=== PATIENT | male | born 1960 | race Caucasian/White ===

== ENCOUNTER 2018-10-09 10:07 | Emergency (ER) | payer MEDICARE, SELFPAY ==
[2018-10-09] VITALS (7 sets, daily range): BP systolic 89–126; BP diastolic 47–83; PULSE 66–95; RESP 12–111; TEMP 36.6; O2SAT 92–100; BMI 28.8
--- NOTE | 2018-10-09 10:21 | CT_ITS ---
STUDY: CT ABDOMEN AND PELVIS WITH CONTRAST REASON FOR EXAM: Male, 58 years old. Constipation, hemorrhoids and rectal abscess. RADIATION DOSAGE (If Supplied By Facility): CTDIvol = ( 17.4 ) mGy, DLP = ( 1327.16 ) mGycm TECHNIQUE: Transaxial images were obtained from the dome of the diaphragm to the symphysis pubis without oral contrast. 100 ml of Isovue 300 contrast was administered. Sagittal and coronal images were reconstructed. Individualized dose optimization techniques were used for this CT. COMPARISON: None. FINDINGS: The visualized lung bases are unremarkable. The visualized portions of the heart are within normal limits. There is decreased attenuation of the liver consistent with steatosis. Normal gallbladder and extrahepatic biliary system. Normal spleen. Normal pancreas. Normal bilateral adrenal glands. Normal right kidney. Normal left kidney. Normal visualized stomach. Normal small intestine. There are multiple colonic diverticula consistent with diverticulosis. Is a 4.9 cm x 4.4 cm inhomogeneous soft tissue density in the right side of the posterior perineum. This most likely represents a focal abscess. Increased markings in the surrounding fat. The appendix is visualized and appears normal. There is diffuse atherosclerotic calcification of the abdominal aorta and its major visceral branches, without a demonstrated aneurysm. Normal inferior vena cava. There is borderline retroperitoneal lymphadenopathy with enlarged nodes no greater than 10mm in the short axis diameter. Normal urinary bladder. Normal abdominal wall. There are diffuse degenerative changes of the visualized lumbar spine. Loss of height and deformity of the L5 vertebrae. This may be post traumatic in nature. CT/Abdomen/Pelvis W IV Cont ONLY IMPRESSION: Fine suggestively 4.9 cm x 4.4 cm abscess in the posterior right perineum. Clinical correlation is recommended. Sigmoid diverticulosis. Electronically Signed: Abelino Roy MD at 13:25 EST Tel [phone], Service support ,
--- NOTE | 2018-10-09 10:25 | ED.DCSUM_ITS ---
- ER Visit Summary Date of Service: 10/09/18 Chief Complaint: Rectal pain History of Present Illness: The patient is a 58 M with increasing rectal pain over the past week or so. He has tried hemorrhoid medication and laxatives with no improvement. He has pain with bowel movements. The pain is spreading to his right buttock. Worse with touch and sitting. He said he had some fevers as recent as today. He never had this before. He has a remote history of B-cell lymphoma and is currently in remission. Physical Examination: Afebrile and vital signs unremarkable. Patient appears uncomfortable but not toxic or in distress. Heart regular. Lungs clear. Abdomen soft and nontender. Right buttock shows gluteal induration, edema, erythema, tenderness that extends adjacent to his anus on the right. Test Results: Laboratory studies and imaging pending. Emergency Department Course and Treatment: Patient treated with fluids, Zofran, and Dilaudid while awaiting results. White count 12.2, sodium 133, potassium 3.4, INR 1.1. Cultures pending. CT showed a right perineal abscess approximately 5 cm in greatest diameter. Patient was discussed with Dr. Cabezas. Patient will be consented for sedation and we will perform the I&D in the emergency department. Dr. Cabezas performed the I&D. I did sedation. He received a total of 300 mg of propofol. The procedure lasted a total of 39 minutes. He tolerated this well. He will be treated with Zosyn. He will be sent home on a course of Augmentin, Percocet, Colace. He will follow-up with surgery early next week. Treatment Plan: As above Disposition: Discharge Impression: 1. Right perineal abscess This note was generated with [employer] dictation software. It may contain incorrect words, spelling, and punctuation that were not noted in review of the chart prior to signing ED Disposition - Plan for ED Patient: Chief Complaint: Constipation Referrals: Nino Wolf MD [Primary Care Provider] -
[2018-10-09 10:43] LABS: Absolute Neutrophil Count 9.8 X10^3/uL (2.0-7.7); Basophil# 0.02 X10^3/uL; Basophil% 0.2 % (0-1); Eosinophil# 0.07 X10^3/uL; Eosinophils% 0.6 % (0-5); Hematocrit 41.8 % (40-54); Hemoglobin 14.9 g/dl (13.0-16.5); Lymphocyte % 9.8 % (19-41); Mean Corp Hgb Conc 35.6 g/gl (32-36); Mean Corpuscular Volume 95.4 fL (80-94); Mean Platelet Vol. 9.5 fl (6.2-12.0); Monocyte# 1.07 X10^3/uL; Monocyte% 8.8 % (0-10); Neutrophil # 9.79 X10^3/uL (2.7-7.7); Neutrophil % 80.3 % (47-70); Platelet Count 156 K/mm3 (150-450); RBC Distribution Width CV 11.9 % (11.6-14.6); Red Blood Count 4.38 M/mm3 (4.6-6.2); White Blood Count 12.2 K/mm3 (4.4-11.0)
[2018-10-09 10:44] LABS: POSITIVE COUNT NO; POSITIVE DIFFERENTIAL NO; POSITIVE MORPHOLOGY NO
[2018-10-09 10:51] LABS: International Normalized Ratio 1.1; Prothrombin Time (Protime)PT. 13.9 SECONDS (11.7-14.9)
[2018-10-09 10:54] LABS: Anion Gap 9 (5-15); BUN 11 mg/dL (7-18); BUN/Creat Ratio 14.7 RATIO (10-20); Calcium,Total 8.4 mg/dL (8.5-10.1); Chloride 100 mmol/L (98-107); Creatinine, Serum 0.75 mg/dL (0.70-1.30); EST Glomerular Filtration Rate 115 mL/min (>60); Est Glom Filt Rate - Afr Amer 139 mL/min (>60); Estimated Creatinine Clearance 105.13 ml/min; Glucose 89 mg/dL (74-106); Potassium 3.4 mmol/L (3.5-5.1); Sodium Level 133 mmol/L (136-145)
[2018-10-09] MEDS: HYDROmorphone 1 MG/ML Syringe IV ×2 (11:00→12:57)
[2018-10-09] MEDS: Ondansetron 4 MG/2 ML Vial IV (11:00)
[2018-10-09] MEDS: 0.9% Normal Saline 1,000 ML 1000 ML IV (11:00)
[2018-10-09] MEDS: Propofol 200 MG/20 ML Vial IV BOLUS (14:35)
--- NOTE | 2018-10-09 15:28 | ED.DEP ---
ED Disposition - Plan for ED Patient: Chief Complaint: Constipation Instructions: ED Abscess IandD Prescriptions: Oxycodone HCl/Acetaminophen [Percocet 5/325] 1 tab PO Q6H PRN PRN 3 Days #12 tab PRN Reason: Pain Amox/Clavulanate Tablet [Augmentin Tablet] 875 mg PO Q12H #20 tab Docusate Sodium [Colace] 100 mg PO DAILY #20 cap Referrals: Tami Cabezas MD [STAFF PHYSICIAN] -
--- NOTE | 2018-10-09 15:30 | PCM.CONS.GEN ---
Reason for Consult Date of Consultation: 10/09/18 Reason for Consultation: Right perianal abscess History of Present Illness: The patient is a 58 year old M resents to the ER due to pain on the right side of his anus. Patient states pain started the previous Saturday and the pain is been so bad that he has not had much of an appetite. He was able to control the pain a little bit with some old Vicodin that he found as well as the last 2 days some alcohol. Patient had a CT abdomen pelvis done which did show a right perianal abscess, white blood cell count of 12. Patient was given 2 L IV fluids. Patient does have a history of B-cell lymphoma and currently is in remission. States he has had issues in the past with hemorrhoids and has seen Dr. Ferrara for this what sounds the hemorrhoids may resolve on their own. Patient denies any history of any previous perirectal abscesses. And states that Dr. Ferrara has done a couple colonoscopies on him in the past and he is currently every 3 years due to polyps. Past Medical History Medical History: Medical History (Last Updated 10/09/18 @ 15:36 by Tami Cabezas MD) History of B-cell lymphoma Z85.72 Allergies No Known Allergies Allergy (Verified 10/09/18 10:09) Home Medications: Ambulatory Orders Medication Instructions Recorded NK 10/09/18 Surgical History: - - EGD and colonoscopy, port placement Smoking Status: Current every day smoker - *Family History Maternal History Items: No pertinent history - Physical Exam General: Alert, Cooperative, No apparent distress Lungs: Normal air movement Cardiovascular: Regular rate Abdomen: Soft, Non Tender, Non-Distended, - - Perianal exam, erythema about 7 x 8 cm on the right buttocks, fluctuance at the anus between 4 and 5:00, very tender to palpation. Extremities: No clubbing, No cyanosis, No edema Vital Signs Temp Pulse Resp BP Pulse Ox 98 F 74 16 99/54 L 98 10/09/18 10:08 10/09/18 15:22 10/09/18 15:22 10/09/18 15:22 10/09/18 15:22 Oxygen Flow Rate (L/min) [14] 15 Oxygen Flow Rate (L/min) [13] 15 Oxygen Flow Rate (L/min) [12] 15 Oxygen Flow Rate (L/min) [11] 15 Oxygen Flow Rate (L/min) [1] 2 Oxygen Flow Rate (L/min) [9] 15 Oxygen Flow Rate (L/min) [8] 15 Oxygen Flow Rate (L/min) [7] 15 Oxygen Flow Rate (L/min) [6] 15 Oxygen Flow Rate (L/min) [5] 15 Oxygen Flow Rate (L/min) [4] 15 Oxygen Flow Rate (L/min) [3] 15 Oxygen Flow Rate (L/min) [2] 4 Oxygen Delivery Method [14] Non-Rebreather Oxygen Delivery Method [13] Non-Rebreather Oxygen Delivery Method [12] Non-Rebreather Oxygen Delivery Method [11] Non-Rebreather Oxygen Delivery Method [1] Nasal Cannula Oxygen Delivery Method [10] Non-Rebreather Oxygen Delivery Method [9] Non-Rebreather Oxygen Delivery Method [8] Non-Rebreather Oxygen Delivery Method [7] Non-Rebreather Oxygen Delivery Method [6] Non-Rebreather Oxygen Delivery Method [5] Non-Rebreather Oxygen Delivery Method [4] Non-Rebreather Oxygen Delivery Method [3] Non-Rebreather Oxygen Delivery Method [2] Nasal Cannula Oxygen Delivery Method Room Air Weight: 190 lb Body Mass Index (BMI) 28.8 Laboratory Tests Past 24 Hrs 10/09/18 10/09/18 10/09/18 10:30 10:30 10:30 WBC 12.2 H RBC 4.38 L Hgb 14.9 Hct 41.8 MCV 95.4 H MCH 34.0 H MCHC 35.6 RDW 11.9 RDW Differential 41.0 Plt Count 156 MPV 9.5 Immature Gran % (Auto) 0.300 Neut % (Auto) 80.3 H Lymph % (Auto) 9.8 L [place] % (Auto) 8.8 Eos % (Auto) 0.6 Baso % (Auto) 0.2 Absolute Neuts (auto) 9.8 H Absolute Lymphs (auto) 1.20 Total Counted Not Reportable PT 13.9 INR 1.1 Sodium 133 L Potassium 3.4 L Chloride 100 Carbon Dioxide 24.0 Anion Gap 9 BUN 11 Creatinine 0.75 Estim Creat Clear Calc 105.13 Est GFR (MDRD) Af Amer 139 Est GFR (MDRD) Non-Af 115 BUN/Creatinine Ratio 14.7 Glucose 89 Calcium 8.4 L Assessment/Plan 58-year-old male with a right perianal abscess 1. Discussed with the patient and his friend the procedure of an I&D of the right perianal abscess including but not limited to bleeding, infection, possible need for future surgery due to fistula, and anesthesia. Patient did receive propofol per Dr. Gil in the ER. At about 4:00 there was noted to be obvious fluctuance about a centimeter and half from the anus extending to the anus. This area was prepped and draped in usual sterile fashion with Betadine. Lidocaine with epinephrine was used for local anesthesia over the site. Cruciate incision was made. About 10-15 cc of purulent material was expressed and also milk from the anus. The wound was irrigated. A hemostat was used to break up loculations. Half of the tubing of a 14 Urdu Malecot catheter was sutured in place with 3-0 silk to help prevent the hole from closing allow drainage. This was dressed with gauze and an ABD and paper tape. Patient tolerated procedure well. Patient will receive Zosyn IV in the ER as well as go home with Augmentin 875 mg p.o. twice daily times 10 days, pain meds per the ER as well as Colace. Instructed patient to follow-up with either me or Dr. Ferrara early next week. Also instructed patient to do sitz baths multiple times a day. Patient had no further questions at this time. Tami Cabezas M.D. Pager: [phone] [facility] [address] [place] [address], [facility], [address] [place] [id number] Office: [phone]
--- NOTE | 2018-10-09 15:34 | CON.PCM_ITS ---
Reason for Consult Date of Consultation: 10/09/18 Reason for Consultation: Right perianal abscess History of Present Illness: The patient is a 58 year old M resents to the ER due to pain on the right side of his anus. Patient states pain started the previous Saturday and the pain is b een so bad that he has not had much of an appetite. He was able to control the pain a little bit with some old Vicodin that he found as well as the last 2 days some alcohol. Patient had a CT abdomen pelvis done which did show a right perianal abscess, white blood cell count of 12. Patient was given 2 L IV fluids. Patient does have a history of B-cell lymphoma and currently is in remission. States he has had issues in the past with hemorrhoids and has seen Dr. Ferrara for this what sounds the hemorrhoids may resolve on their own. Patient denies any history of any previous perirectal abscesses. And states that Dr. Ferrara has done a couple colonoscopies on him in the past and he is currently every 3 years due to polyps. Past Medical History Medical History: Medical History (Last Updated 10/09/18 @ 15:36 by Tami Cabezas MD) History of B-cell lymphoma Z85.72 Allergies No Known Allergies Allergy (Verified 10/09/18 10:09) Home Medications: Ambulatory Orders Medication Instructions Recorded NK 10/09/18 Surgical History: - - EGD and colonoscopy, port placement Smoking Status: Current every day smoker - *Family History Maternal History Items: No pertinent history - Physical Exam General: Alert, Cooperative, No apparent distress Lungs: Normal air movement Cardiovascular: Regular rate Abdomen: Soft, Non Tender, Non-Distended, - - Perianal exam, erythema about 7 x 8 cm on the right buttocks, fluctuance at the anus between 4 and 5:00, very tender to palpation. Extremities: No clubbing, No cyanosis, No edema Vital Signs Temp Pulse Resp BP Pulse Ox 98 F 74 16 99/54 L 98 10/09/18 10:08 10/09/18 15:22 10/09/18 15:22 10/09/18 15:22 10/09/18 15:22 Oxygen Flow Rate (L/min) [14] 15 Oxygen Flow Rate (L/min) [13] 15 Oxygen Flow Rate (L/min) [12] 15 Oxygen Flow Rate (L/min) [11] 15 Oxygen Flow Rate (L/min) [1] 2 Oxygen Flow Rate (L/min) [9] 15 Oxygen Flow Rate (L/min) [8] 15 Oxygen Flow Rate (L/min) [7] 15 Oxygen Flow Rate (L/min) [6] 15 Oxygen Flow Rate (L/min) [5] 15 Oxygen Flow Rate (L/min) [4] 15 Oxygen Flow Rate (L/min) [3] 15 Oxygen Flow Rate (L/min) [2] 4 Oxygen Delivery Method [14] Non-Rebreather Oxygen Delivery Method [13] Non-Rebreather Oxygen Delivery Method [12] Non-Rebreather Oxygen Delivery Method [11] Non-Rebreather Oxygen Delivery Method [1] Nasal Cannula Oxygen Delivery Method [10] Non-Rebreather Oxygen Delivery Method [9] Non-Rebreather Oxygen Delivery Method [8] Non-Rebreather Oxygen Delivery Method [7] Non-Rebreather Oxygen Delivery Method [6] Non-Rebreather Oxygen Delivery Method [5] Non-Rebreather Oxygen Delivery Method [4] Non-Rebreather Oxygen Delivery Method [3] Non-Rebreather Oxygen Delivery Method [2] Nasal Cannula Oxygen Delivery Method Room Air Weight: 190 lb Body Mass Index (BMI) 28.8 Laboratory Tests Past 24 Hrs 10/09/18 10/09/18 10/09/18 10:30 10:30 10:30 WBC 12.2 H RBC 4.38 L Hgb 14.9 Hct 41.8 MCV 95.4 H MCH 34.0 H MCHC 35.6 RDW 11.9 RDW Differential 41.0 Plt Count 156 MPV 9.5 Immature Gran % (Auto) 0.300 Neut % (Auto) 80.3 H Lymph % (Auto) 9.[address] % (Auto) 8.8 Eos % (Auto) 0.6 Baso % (Auto) 0.2 Absolute Neuts (auto) 9.8 H Absolute Lymphs (auto) 1.20 Total Counted Not Reportable PT 13.9 INR 1.1 Sodium 133 L Potassium 3.4 L Chloride 100 Carbon Dioxide 24.0 Anion Gap 9 BUN 11 Creatinine 0.75 Estim Creat Clear Calc 105.13 Est GFR (MDRD) Af Amer 139 Est GFR (MDRD) Non-Af 115 BUN/Creatinine Ratio 14.7 Glucose 89 Calcium 8.4 L Assessment/Plan 58-year-old male with a right perianal abscess 1. Discussed with the patient and his friend the procedure of an I&D of the right perianal abscess including but not limited to bleeding, infection, possible need for future surgery due to fistula, and anesthesia. Patient did receive propofol per Dr. Gil in the ER. At about 4:00 there was noted to be obvious fluctuance about a centimeter and half from the anus extending to the anus. This area was prepped and draped in usual sterile fashion with Betadine. Lidocaine with epinephrine was used for local anesthesia over the site. C ruciate incision was made. About 10-15 cc of purulent material was expressed and also milk from the anus. The wound was irrigated. A hemostat was used to break up loculations. Half of the tubing of a 14 [place] Malecot catheter was sutured in place with 3-0 silk to help prevent the hole from closing allow drainage. This was dressed with gauze and an ABD and paper tape. Patient tolerated procedure well. Patient will receive Zosyn IV in the ER as well as go home with Augmentin 875 mg p.o. twice daily times 10 days, pain meds per the ER as well as Colace. Instructed patient to follow-up with either me or Dr. Ferrara early next week. Also instructed patient to do sitz baths multiple times a day. Patient had no further questions at this time. Tami Cabezas M.D. Pager: [phone] [facility] [address] [place] [address], [address] [place] [address] Office: [phone]
[2018-10-09] MEDS: Piperacil/Tazobactam 3.375 GM/50 ML ML IV (15:55)
== END 2018-10-09 16:51 | disposition home or self-care (01) ==
PROVIDERS: Emergency Provider Emergency Medicine; Family Provider Family Medicine; PCP Family Medicine
DX: L02.215 Cutaneous abscess of perineum (principal); B96.89 Other specified bacterial agents as the cause of diseases classified elsewhere; C85.10 Unspecified B-cell lymphoma, unspecified site; F17.200 Nicotine dependence, unspecified, uncomplicated
CPT/HCPCS: 46050; 36415; 74177; 80048; 85025; 85610; 87040; 87070; 87075; 87076; 87077; 87186; 87205; 96361; 96365; 96375; 96376; 99156; 99157; 99284; J7030; Q9967; A4216; J2405

== ENCOUNTER 2021-03-27 13:51 | Emergency (ER) | payer MEDICARE, SELFPAY ==
[2021-03-27 13:51] VITALS: BP 111/69; PULSE 99; RESP 20; TEMP 36.1; O2SAT 93; BMI 30.2
[2021-03-27 14:16] VITALS: BP 111/80; PULSE 87; RESP 24; TEMP 36.1; O2SAT 92
--- NOTE | 2021-03-27 14:45 | EKG12_ITS ---
Test Reason : SOB Blood Pressure : / mmHG Vent. Rate : 082 BPM Atrial Rate : 082 BPM P-R Int : 128 ms QRS Dur : 082 ms QT Int : 384 ms P-R-T Axes : 038 -14 028 degrees QTc Int : 448 ms Normal sinus rhythm Low voltage QRS (Limb Leads) Confirmed by MICHELLE LYNN, LYLE ([id number]), development editor DORIS BOWERS ([id number]) on 03/30/2021 8:57:02 AM Referred By: CORY Confirmed By:LYLE MARTINEZ MD
[2021-03-27 15:03] LABS: Absolute Lymphocyte Count 1.45 X10^3/uL (0.83-4.51); Absolute Neutrophil Count 3.9 X10^3/uL (2.0-7.7); Basophil# 0.02 X10^3/uL; Basophil% 0.3 % (0-1); Eosinophil# 0.05 X10^3/uL; Eosinophils% 0.8 % (0-5); Hematocrit 35.8 % (40-54); Hemoglobin 12.2 g/dL (13.0-16.5); Lymphocyte # 1.45 X10^3/ul (0.83-4.51); Lymphocyte % 24.5 % (19-41); Mean Corp Hgb Conc 34.1 g/dL (32-36); Mean Corpuscular Hgb 31.8 pg (27.0-32.0); Mean Corpuscular Volume 93.2 fL (80-94); Mean Platelet Vol. 10.3 fl (6.2-12.0); Monocyte# 0.43 X10^3/uL; Monocyte% 7.3 % (0-10); NRBC Flagged by Analyzer 0 % (0-5); Neutrophil # 3.92 X10^3/uL (2.7-7.7); Neutrophil % 66.4 % (47-70); POSITIVE MORPHOLOGY YES; Platelet Count 185 K/mm3 (150-450); RBC Distribution Width CV 12.6 % (11.6-14.6); RBC Distribution Width SD 43.3 fl (35.1-43.9); Red Blood Count 3.84 M/mm3 (4.6-6.2); White Blood Count 5.9 K/mm3 (4.4-11.0)
[2021-03-27 15:04] LABS: Differential Indicated SCAN CRITERIA MET
--- NOTE | 2021-03-27 15:12 | ED.VIS.GEN ---
History of Present Illness Chief Complaint: Shortness of Breath Informant: Patient Narrative: 10-year-old male with no reported medical history presenting with shortness of breath for about 2-1/2 weeks. He states he was exposed to his daughter who had tested positive for Covid about 3 weeks ago. 2 to 3 days later he started having symptoms including fever, chills, body aches, dyspnea, change in taste and smell. He did not call his primary care doctor. He states that his daughter recovered and gave him her zinc and Mucinex and asked what has been taking. Has been able to eat and drink without nausea or vomiting. He is making normal urine and states he is slightly constipated at times. He no longer has a fever. He has dyspnea with exertion. He states he is a smoker but quit 2 weeks ago. He is denying any chest pain. Past Medical History - Allergies and Home Meds Allergies/Adverse Reactions: Allergies No Known Allergies Allergy (Verified 03/27/21 13:56) Primary Care Physician: Nino Wolf MD [Primary Care Provider] - Prior records reviewed: Yes Past Medical History: - - Denies significant medical history Surgical History: - Lives: Alone Smoking Status: Current every day smoker Alcohol: None Drugs: None - Family History Maternal Family History: Reports: No pertinent history Review of Systems General: Denies: Chills, Fever, Sweats Eyes: Denies: Visual changes - bilaterally, Diplopia ENT: Reports: - - Decreased taste and smell. Denies: Rhinorrhea, Sore throat Cardiovascular: Denies: Chest pain, Palpitations Respiratory: Reports: Dyspnea, Cough, Dyspnea on exertion Gastrointestinal: Reports: Constipation. Denies: Abdominal pain, Nausea, Vomiting Genitourinary: Denies: Dysuria, Hematuria, Frequency Musculoskeletal: Reports: Myalgias - Resolved Skin: Denies: Rash, Abscess Neurological: Denies: Headache, Weakness, Parasthesia Psych: Denies: Depression, Anxiety Endocrine: Denies: Polyuria, Polydipsia Physical Exam Vital Signs/Narrative: Vital Signs Temp Pulse Resp BP Pulse Ox 03/27/21 14:16 97 F L 87 24 H 111/80 92 03/27/21 13:51 97 F L 99 20 H 111/69 93 Inital Vital Signs reviewed: Yes General: Well nourished Head: Normocephalic, Atraumatic Eyes: Perrl, EOMI. Negative for: Pale conjunctiva ENT: Moist mucous membranes, No rhinorrhea Cardiovascular: Regular rate, Regular rhythm Respiratory: No distress, CTA bilaterally Abdomen: Soft, Nontender, Nondistended Back: Nontender, Normal Inspection Extremities: Nontender, No edema Skin: Normal color, No rash. Negative for: Cyanosis, Diaphoresis Neurological: Alert, Oriented x3, Cranial nerves II-XII grossly intact Psychological: Normal affect, Normal Mood Diagnostic/Tx/Re-eval Clinical Impression(s) from Imaging Studies Chest X-Ray 03/27/21 15:23 IMPRESSION: Diffuse bilateral patchy infiltrates in the differential lateral distribution suggestive of pneumonitis secondary to Covid 19. Electronically Signed: Abelino Roy MD at 15:44 EDT , Service support , Chest CTA 03/27/21 16:22 IMPRESSION: 1. No evidence of pulmonary embolus. 2. No aortic dissection or aneurysm. 3. Mediastinal and hilar lymphadenopathy increased from the prior PET/CT scan. This is thought to be secondary to the patient''s lymphoma. 4. Diffuse fibrotic appearing groundglass infiltrates peripherally through both lungs with minimal consolidation at the lung bases4. This could represent atypical viral pneumonia. 5. Splenomegaly unchanged from prior study. Electronically Signed: Prasanna Roland DO at 17:35 EDT Tel [phone], Service support , Laboratory Data 03/27/21 03/27/21 03/27/21 14:40 14:40 14:40 WBC 5.9 RBC 3.84 L Hgb 12.2 L Hct 35.8 L MCV 93.2 MCH 31.8 MCHC 34.1 RDW Std Deviation 43.3 RDW Coeff of Hilda 12.6 Plt Count 185 MPV 10.3 Immature Gran % (Auto) 0.700 Neut % (Auto) 66.4 Lymph % (Auto) 24.5 Cameron % (Auto) 7.3 Eos % (Auto) 0.8 Baso % (Auto) 0.3 Absolute Neuts (auto) 3.9 Absolute Lymphs (auto) 1.45 Nucleated RBC % 0 Reactive Lymphocytes RARE Sodium 134 L Potassium 3.7 Chloride 100 Carbon Dioxide 27.0 Anion Gap 7 BUN 12 Creatinine 0.86 Estim Creat Clear Calc 89.48 Est GFR (MDRD) Af Amer 117 Est GFR (MDRD) Non-Af 97 BUN/Creatinine Ratio 14.0 Glucose 106 Lactic Acid 1.5 Calcium 8.4 L Total Bilirubin 1.20 H AST 78 H ALT 45 Alkaline Phosphatase 92 Troponin I < 0.015 Total Protein 6.7 Albumin 2.5 L Globulin 4.2 Albumin/Globulin Ratio 0.6 L Procalcitonin 03/27/21 14:40 WBC RBC Hgb Hct MCV MCH MCHC RDW Std Deviation RDW Coeff of Hilda Plt Count MPV Immature Gran % (Auto) Neut % (Auto) Lymph % (Auto) Cameron % (Auto) Eos % (Auto) Baso % (Auto) Absolute Neuts (auto) Absolute Lymphs (auto) Nucleated RBC % Reactive Lymphocytes Sodium Potassium Chloride Carbon Dioxide Anion Gap BUN Creatinine Estim Creat Clear Calc Est GFR (MDRD) Af Amer Est GFR (MDRD) Non-Af BUN/Creatinine Ratio Glucose Lactic Acid Calcium Total Bilirubin AST ALT Alkaline Phosphatase Troponin I Total Protein Albumin Globulin Albumin/Globulin Ratio Procalcitonin 0.45 H - Medical Decision Making 60-year-old male presenting with shortness of breath which is worse with exertion. He is exposed to COVID-19 and had multiple symptoms consistent with Covid. He states this is been worse over 2-1/2 weeks and he now feels more dyspneic. He states is not having any chest pain. Patient had EKG performed on arrival which shows a sinus rhythm at 82 bpm. Chest x-ray shows bilateral pulmonary infiltrates as interpreted by myself and radiology does agree. CTA of the chest shows similar findings without PE or dissection as interpreted by radiology and reviewed by myself. Lab work shows that he is not leukopenic or lymphopenic. He does not have a leukocytosis. Renal function and electrolytes are unremarkable. Is a small bump in his LFTs which would be consistent with a COVID-19. Patient ambulated on pulse ox and maintain sats 93 to 94%. I feel at this point he is stable for discharge home. I talked with Dr. Wolf regarding the patient that he was lost to follow-up during the pandemic. He states that he will follow up with him closely and make sure that he is improving. He recommended starting doxycycline given the patient's elevated procalcitonin. He was given the first dose in the ED and was given a prescription. Patient given return precautions. He stable for discharge at this time. Impression: 1. COVID-19 2. Dyspnea 3. Elevated LFTs ED Disposition - Plan for ED Patient: Referrals: Nino Wolf MD [Primary Care Provider] -
[2021-03-27 15:19] LABS: ALB/GLOB Ratio 0.6 RATIO (0.9-2.4); AST(SGOT) 78 U/L (15-37); Alanine Aminotransfer ALT/SGPT 45 U/L (16-61); Albumin, Serum 2.5 g/dL (3.2-5.0); Alkaline Phosphatase 92 U/L (45-117); Anion Gap 7 (5-15); BUN 12 mg/dL (7-18); Calcium,Total 8.4 mg/dL (8.5-10.1); Chloride 100 mmol/L (98-107); Creatinine, Serum 0.86 mg/dL (0.70-1.30); EST Glomerular Filtration Rate 97 mL/min (>60); Est Glom Filt Rate - Afr Amer 117 mL/min (>60); Estimated Creatinine Clearance 89.48 ml/min; Globulin 4.2 g/dL (2.2-4.2); Glucose 106 mg/dL (74-106); Potassium 3.7 mmol/L (3.5-5.1); Protein, Total 6.7 g/dL (6.4-8.2); Sodium Level 134 mmol/L (136-145)
[2021-03-27 15:20] LABS: Reactive Lymphocyte RARE
[2021-03-27 15:23] LABS: Lactic Acid 1.5 mmol/L (0.4-1.9)
--- NOTE | 2021-03-27 15:23 | RAD_ITS ---
STUDY: X-RAY CHEST REASON FOR EXAM: Male, 60 years old. Cough TECHNIQUE: Single AP portable view of the chest. COMPARISON: None. FINDINGS: EKG electrodes are seen. Diffuse bilateral infiltrates in the preferential peripheral distribution. Pneumonitis secondary to Covid 19 should be ruled out There is no demonstrated pleural abnormality. Normal size heart. Normal mediastinum and yevgeniy. Normal visualized pulmonary arteries. There is atherosclerotic calcification of the aortic arch with tortuosity. There are diffuse degenerative changes of the visualized thoracic spine. Normal visualized ribs, clavicles, and shoulders. There is no demonstrated abnormality of the visualized soft tissue structures of the upper abdomen. RAD/Chest 1 View (Portable) IMPRESSION: Diffuse bilateral patchy infiltrates in the differential lateral distribution suggestive of pneumonitis secondary to Covid 19. Electronically Signed: Abelino Roy MD at 15:44 EDT , Service support ,
[2021-03-27] MEDS: Ipratropium/Albuterol Sulfate 3 ML AMPUL.NEB INHALATION (15:26)
[2021-03-27] MEDS: Albuterol 2.5 MG/3 ML VIAL.NEB. INHALATION (15:26)
[2021-03-27 15:29] LABS: Procalcitonin 0.45 ng/mL (0.00-0.09)
[2021-03-27 15:30] VITALS: PULSE 85; RESP 24; RESP 25; O2SAT 93
[2021-03-27] MEDS: MethylPREDNISolone 125 MG/2 ML Vial IV (16:10)
[2021-03-27 16:12] VITALS: BP 106/70; PULSE 99; RESP 28; O2SAT 94
--- NOTE | 2021-03-27 16:22 | CT_ITS ---
STUDY: CTA CHEST REASON FOR EXAM: Male, 60 years old. Dyspnea for 2 weeks. History of lymphoma. RADIATION DOSAGE (If Supplied By Facility): CTDIvol = ( 11.47 ) mGy, DLP = ( 401.08 ) mGycm TECHNIQUE: The examination was performed with the intravenous administration of IV 100mL Isovue-370. Post-processing of the angiographic images was performed, with multiplanar reformation and 3D reconstruction. Individualized dose optimization techniques were used for this CT. COMPARISON: Chest, 03/27/2021. Pet/CT scan, 04/23/2011. FINDINGS: Normal enhancement of the main pulmonary artery and right and left pulmonary arteries. Normal enhancement of the bilateral peripheral pulmonary arteries. There is no demonstrated pulmonary embolism. Minimal atherosclerotic changes of the thoracic aorta without aneurysm. There is no demonstrated aortic dissection. Normal heart and pericardium. There are calcifications of the coronary arteries. There is evidence of mediastinal lymphadenopathy. The largest node, in the subcarinal space, measures 1.8 x 1.7 x 1.5 cm. Bilateral hilar lymphadenopathy. Normal visualized trachea and bronchi. The lungs are well expanded. There is patchy peripheral fibrotic appearing densities throughout both lungs. Questionable mild consolidation in the lower lobes. No focal mass. Normal pleura. Nonspecific subcentimeter axillary lymphadenopathy. The chest wall is otherwise unremarkable. There are degenerative changes of thoracic spine. 2 Splenomegaly without mass. There is a hiatal hernia. CT/CTA Chest W/WO Contrast IMPRESSION: 1. No evidence of pulmonary embolus. 2. No aortic dissection or aneurysm. 3. Mediastinal and hilar lymphadenopathy increased from the prior PET/CT scan. This is thought to be secondary to the patient''s lymphoma. 4. Diffuse fibrotic appearing groundglass infiltrates peripherally through both lungs with minimal consolidation at the lung bases4. This could represent atypical viral pneumonia. 5. Splenomegaly unchanged from prior study. Electronically Signed: Prasanna Roland DO at 17:35 EDT Tel [phone], Service support ,
[2021-03-27 17:17] VITALS: BP 108/65; PULSE 88; RESP 29; O2SAT 93; O2SAT 94
[2021-03-27 18:03] VITALS: PULSE 85; RESP 27; O2SAT 94
[2021-03-27] MEDS: Doxycycline 100 MG CAPSULE PO (18:18)
== END 2021-03-27 18:22 | disposition home or self-care (01) ==
PROVIDERS: Emergency Provider Student in an Organized Health Care Education/Training Program; PCP Family Medicine
DX: U07.1 COVID-19 (principal); R06.00 Dyspnea, unspecified; R79.89 Other specified abnormal findings of blood chemistry; F17.200 Nicotine dependence, unspecified, uncomplicated
CPT/HCPCS: 71045; 71275; 80053; 83605; 84145; 84484; 85025; 87635; 93005; 94640; 96374; 99251; 99285; Q9967; A4216; G0463; U0002

== ENCOUNTER 2021-04-15 09:27 | Emergency (ER) | payer MEDICARE, SELFPAY ==
[2021-04-15 09:28] VITALS: BP 146/89; PULSE 87; RESP 20; TEMP 36.7; O2SAT 97; BMI 28.5
--- NOTE | 2021-04-15 09:43 | EKG12_ITS ---
Test Reason : Blood Pressure : / mmHG Vent. Rate : 076 BPM Atrial Rate : 076 BPM P-R Int : 130 ms QRS Dur : 082 ms QT Int : 386 ms P-R-T Axes : 018 -11 032 degrees QTc Int : 434 ms Normal sinus rhythm Possible Inferior infarct , age undetermined Abnormal ECG Confirmed by RAMSEY LYNN, CLAIRE ([id number]), make up editor DORIS BOWERS ([id number]) on 04/18/2021 9:27:37 AM Referred By: GRIFFIN Confirmed By:CLAIRE MUSTAFA MD
--- NOTE | 2021-04-15 09:43 | CT_ITS ---
EXAM: CT ANGIOGRAPHY CHEST WITHOUT AND WITH INTRAVENOUS CONTRAST : 1960 CLINICAL INDICATION: pulmonary TECHNIQUE: Helically acquired angiography images were obtained of the chest without and with intravenous contrast. This CT exam was performed using one or more of the following dose reduction techniques: automated exposure control, adjustment of the mA and/or kV according to patient size, and/or use of iterative reconstruction technique. This report was created using [employer] report generation technology. MIP reconstructed images were created and reviewed. CONTRAST: IV 100mL Isovue-370 COMPARISON: None. FINDINGS: PULMONARY ARTERIES: Unremarkable. Normal in caliber. No evidence of pulmonary embolism. AORTA: Unremarkable. Normal in caliber. No evidence of dissection. GREAT VESSELS OF AORTIC ARCH: Unremarkable. Normal in caliber. No evidence of dissection. LUNGS AND PLEURAL SPACES: There are patchy peripheral areas of groundglass opacity and consolidation greatest in the lower lobes. No mass. No pleural effusion or thickening. No pneumothorax. HEART: Unremarkable. Heart size is normal. No pericardial effusion. No signs of right heart strain. MEDIASTINUM: There are scattered mediastinal and hilar lymph nodes. Esophagus is unremarkable. No hiatal hernia. THYROID: Unremarkable. No thyroid lesions. BONES/JOINTS: Unremarkable. No suspicious lytic or blastic abnormality. CT/CTA Chest W/WO Contrast IMPRESSION: 1. No evidence of pulmonary embolus. 2. Scattered peripheral areas of groundglass opacity consolidation. Imaging features can be seen with coated 19 pneumonia, though are nonspecific and can occur of the right infectious and noninfectious processes. There are also lymph nodes in the mediastinum which are likely reactive or inflammatory. Individualized dose optimization techniques were used for this CT. at 1119 Reported and signed by: Pee Biswas MD Electronically Signed: Pee Biswas MD at 11:18 EDT Tel , Service support ,
[2021-04-15 10:20] LABS: Absolute Lymphocyte Count 1.86 X10^3/uL (0.83-4.51); Absolute Neutrophil Count 3.6 X10^3/uL (2.0-7.7); Basophil# 0.05 X10^3/uL; Basophil% 0.8 % (0-1); Eosinophil# 0.12 X10^3/uL; Hematocrit 38.3 % (40-54); Hemoglobin 12.8 g/dL (13.0-16.5); Lymphocyte # 1.86 X10^3/ul (0.83-4.51); Lymphocyte % 30.3 % (19-41); Mean Corp Hgb Conc 33.4 g/dL (32-36); Mean Corpuscular Hgb 30.9 pg (27.0-32.0); Mean Corpuscular Volume 92.5 fL (80-94); Mean Platelet Vol. 9.1 fl (6.2-12.0); Monocyte# 0.49 X10^3/uL; NRBC Flagged by Analyzer 0 % (0-5); Neutrophil % 58.6 % (47-70); Platelet Count 114 K/mm3 (150-450); RBC Distribution Width CV 13.3 % (11.6-14.6); RBC Distribution Width SD 45.2 fl (35.1-43.9); Red Blood Count 4.14 M/mm3 (4.6-6.2); White Blood Count 6.1 K/mm3 (4.4-11.0)
[2021-04-15 10:36] LABS: ALB/GLOB Ratio 0.9 RATIO (0.9-2.4); AST(SGOT) 16 U/L (15-37); Alanine Aminotransfer ALT/SGPT 23 U/L (16-61); Albumin, Serum 3.2 g/dL (3.2-5.0); Alkaline Phosphatase 116 U/L (45-117); Anion Gap 5 (5-15); BUN 12 mg/dL (7-18); BUN/Creat Ratio 14.4 RATIO (10-20); Calcium,Total 8.7 mg/dL (8.5-10.1); Chloride 102 mmol/L (98-107); Creatinine, Serum 0.83 mg/dL (0.70-1.30); EST Glomerular Filtration Rate 100 mL/min (>60); Est Glom Filt Rate - Afr Amer 121 mL/min (>60); Estimated Creatinine Clearance 92.71 ml/min; Globulin 3.5 g/dL (2.2-4.2); Glucose 91 mg/dL (74-106); Protein, Total 6.7 g/dL (6.4-8.2); Sodium Level 134 mmol/L (136-145)
[2021-04-15 10:38] LABS: BNP,B-Type NATRIURETIC PEPTIDE 19.7 pg/mL (0-100)
--- NOTE | 2021-04-15 10:48 | ED.VIS.DYS ---
HPI History of Present Illness Chief Complaint: Shortness of Breath Informant: patient Onset/Context/Timing Onset: Weeks Context: gradual Timing: Intermittent Quality: Positive for Dyspnea on exertion Current Severity: Mild Maximum Severity: Moderate Worsened by: Exertion and Coughing Relieved by: Nothing Associated Symptoms cough Chest Pain: Positive for Pleuritic Narrative Narrative: The patient is a 60-year-old male with medical history significant for B-cell lymphoma that is in remission, recent positive Covid test about 3 weeks ago, who presents to the emergency department with persistent shortness of breath. The patient states that he is been feeling short of breath for about 6 weeks. He states that when he initially developed a Covid symptoms. He was seen here about 3 weeks ago. At a point, he was positive for Covid but his work-up was otherwise essentially unremarkable. He is not hypoxic. He states since the diagnosis, he seemed to improve for a few days, but then became more short of breath. He states is worse when he exerts himself. He denies any chest pain. He does admit to some pleuritic pain especially when taking a deep breath. [facility] Medical History History of B-cell lymphoma Home Medications doxycycline monohydrate 100 mg PO BID #20 capsule 03/27/21 [Rx Last Taken Unknown] prednisone 10 mg PO DAILY #48 tablet 04/15/21 [Rx Last Taken Unknown] Allergy/AdvReac Type Severity Reaction Status Date / Time No Known Allergies Allergy Verified 04/15/21 09:31 Surgical History s/p port placement Social History Smoking Status: Former smoker ROS ROS ED Constitutional Constitutional ED: Denies chills or fever(s) Eyes Eyes: Denies blurry vision or change in vision ENT ENT ED: Denies ear pain or sore throat Cardiovascular Cardiovascular: Denies chest pain or palpitations Respiratory/Chest Respiratory/Chest: Reports dyspnea and dyspnea on exertion; Denies cough Gastrointestinal Gastrointestinal: Denies abdominal pain, nausea or vomiting Genitourinary Genitourinary ED: Denies dysuria or urinary frequency Musculoskeletal Musculoskeletal: Denies arthralgias or myalgias Integumentary Denies rash Neurologic Neurologic: Denies headache(s) or paresthesias Psychiatric Psychiatric: Denies anxiety or depression Endocrine Endocrinology: Denies polydipsia or polyuria Allergic/Immunologic Allergic/Immunologic ED: Denies urticaria EXAM Physical Exam Const Vital Signs: 04/15/21 09:28 04/15/21 10:02 Temperature 98.0 F Temperature Source Temporal Pulse Rate 87 Respiratory Rate 20 H Respiratory Effort Normal Non-Labored Respiratory Depth Normal Respiratory Pattern Normal Blood Pressure 146/89 H Blood Pressure Mean 108 Pulse Ox 97 Oxygen Delivery Method Room Air Room Air Positive well nourished and well developed General Appearance ED: well developed HEENT Reports normocephalic, head/scalp atraumatic and moist mucous membranes Eyes PERRL and EOMs intact bilaterally Neck no lymphadenopathy and supple General: Negative for tenderness Chest Wall inspection of chest normal Resp normal respiratory effort and clear to auscultation bilaterally Cardio regular rate, regular rhythm and no murmurs GI normal to inspection, nondistended, normoactive bowel sounds Palpation: Negative for tender, guarding or rebound tenderness present Back/Spine no CVA tenderness Cervical Spine: Negative for cervical spine tenderness Thoracic Spine / Upper Back: Negative for thoracic spinal tenderness Extremity normal to inspection General Extremety ED: Negative for tenderness Neuro oriented x3 and CN's II-XII intact bilaterally Neuro Narrative: No focal deficits appreciated. Sensorium / Orientation: alert Psych mental status grossly normal Skin no rashes or lesions noted, no wounds and skin turgor normal MDM MDM MDM Narrative Medical decision making narrative: The patient presents with persistent shortness of breath in light of his recent Covid diagnosis. EKG was obtained on arrival. Sinus rhythm without evidence of acute ischemia. Cardiac enzymes are normal. BNP was negative. In light of his recent Covid, I did obtain a CTA of his chest. He still has the persistent lymphadenopathy. He has inflammatory changes in the periphery, but it does look stable to improved from his prior CTA. With the patient's smoking history and inflammatory change, I do feel that a prednisone burst would likely improve the symptoms. He has already completed a course of antibiotics. He has not had fever. I do not feel this represents a bacterial infection. At this point, the patient will be discharged with a prednisone burst and taper and will follow up with his primary care. Impression 1. Dyspnea 2. Inflammatory pulmonary infiltrates Lab Data Attestation: I reviewed the patient's lab results. Labs: Laboratory Results - last 24 hr 04/15/21 04/15/21 04/15/21 10:10 10:10 10:10 WBC 6.1 RBC 4.14 L Hgb 12.8 L Hct 38.3 L MCV 92.5 MCH 30.9 MCHC 33.4 RDW Std Deviation 45.2 H RDW Coeff of Hilda 13.3 Plt Count 114 L MPV 9.1 Immature Gran % (Auto) 0.300 Neut % (Auto) 58.6 Lymph % (Auto) 30.3 [place] % (Auto) 8.0 Eos % (Auto) 2.0 Baso % (Auto) 0.8 Absolute Neuts (auto) 3.6 Absolute Lymphs (auto) 1.86 Nucleated RBC % 0 Sodium 134 L Potassium 4.0 Chloride 102 Carbon Dioxide 27.0 Anion Gap 5 BUN 12 Creatinine 0.83 Estim Creat Clear Calc 92.71 Est GFR (MDRD) Af Amer 121 Est GFR (MDRD) Non-Af 100 BUN/Creatinine Ratio 14.4 Glucose 91 Calcium 8.7 Total Bilirubin 0.50 AST 16 ALT 23 Alkaline Phosphatase 116 Troponin I < 0.015 B-Natriuretic Peptide 19.7 Total Protein 6.7 Albumin 3.2 Globulin 3.5 Albumin/Globulin Ratio 0.9 Radiography Diagnostic Testing: Radiology Impression Chest CTA 04/15/21 09:43 IMPRESSION: 1. No evidence of pulmonary embolus. 2. Scattered peripheral areas of groundglass opacity consolidation. Imaging features can be seen with coated 19 pneumonia, though are nonspecific and can occur of the right infectious and noninfectious processes. There are also lymph nodes in the mediastinum which are likely reactive or inflammatory. Individualized dose optimization techniques were used for this CT. at 1119 Reported and signed by: Pee Biswas MD Electronically Signed: Pee Biswas MD at 11:18 EDT Tel , Service support , Discharge Plan Triage Chief Complaint: Shortness of Breath ED Provider: Luis Decker Dx/Rx/DC Orders Instructions: ED Dyspnea Prescriptions: New prednisone 10 MG tablet 10 mg PO DAILY Qty: 48 RF: 0 No Action doxycycline monohydrate 100 MG capsule 100 mg PO BID Qty: 20 RF: 0 Primary Care Provider: Nino Wolf Referrals: Nino Wolf MD [Primary Care Provider] -
[2021-04-15 11:41] VITALS: BP 113/80; PULSE 81; RESP 22; O2SAT 97
== END 2021-04-15 11:42 | disposition home or self-care (01) ==
LOC: ED 11:09
PROVIDERS: Emergency Provider Emergency Medicine; PCP Family Medicine
DX: R06.00 Dyspnea, unspecified (principal); R91.8 Other nonspecific abnormal finding of lung field; Z85.72 Personal history of non-Hodgkin lymphomas; Z87.891 Personal history of nicotine dependence
CPT/HCPCS: 71275; 80053; 83880; 84484; 85025; 93005; 96360; 96361; 99284; J7040; Q9967; A4216

== ENCOUNTER → 2021-10-24 16:15 | Outpatient (CLI) | payer MEDICARE, SELFPAY ==
--- NOTE | 2021-10-24 16:00 | PET_ITS ---
EXAMINATION: FDG PET-CT INDICATIONS: A 61-year-old male with history of lymphoma presenting for restaging examination. COMPARISON EXAMINATION: FDG PET-CT report dated 07/05/21, MRI of the lumbar spine report dated 09/28/21 TECHNIQUE: Following the intravenous administration of 14.9 mCi of F-18 deoxyglucose via the left antecubital fossa, multiplanar image acquisitions of the neck, chest, abdomen and pelvis to level of mid thigh, obtained at one hour post radiopharmaceutical administration contemporaneously interpreted with the current CT of the neck, chest, abdomen and pelvis, to level of mid thigh, dated 10/24/21 via coregistration and FDG PET-CT report dated 07/05/21, MRI of the lumbar spine report dated 09/28/21 reveals: BLOOD GLUCOSE LEVEL:?? 86 mg/dl?HEIGHT:?68 inches?WEIGHT: 200 lbs. FINDINGS: 1. There is no quantitative scintigraphic evidence of abnormal increased glucose metabolism on meticulous inspection of whole body acquisitions to include all three axis reconstructions. 2. Normal physiologic distribution of the radiopharmaceutical is apparent in the hepatic and splenic parenchyma, both renal units, bladder and visualized intestinal tract. The visualized portion of the cerebral cortical-subcortical structures demonstrate symmetric and preserved glucose metabolism. Diffuse radiopharmaceutical concentration is noted in all four quadrants of the abdomen and pelvis, most accentuated at the level of the rectum-rectal vault. The spleen is prominent in size demonstrating a maximal vertical dimension of 15.1-cm (normal < 12.5-cm). The calculated maximal standard uptake value is less than that defined in the hepatic reference of 3.0. There is homogenous enhanced glucose concentration evidenced in the visualized appendicular and axial skeletal structures. All previously described hypermetabolic foci noted on the FDG PET study report dated 07/05/21 are not apparent on the present examination. Pertinent CT findings are as follows: CHEST: There is atherosclerotic calcification defined in the thoracic aorta without evidence of dilatation-aneurysm formation. Coronary arterial calcification is observed. There are no parenchymal densities-nodules defined in the right and left hemithorax with discernible increased FDG PET study uptake. Bilateral axillary and scattered mediastinal soft tissue is ametabolic. ABDOMEN AND PELVIS: There is atherosclerotic calcification defined in the abdominal aorta without evidence of dilatation-aneurysm formation. Abdominal-pelvic arterial calcification is observed. Colonic diverticulosis is encountered without evidence of diverticulitis. There is retained oral contrast material noted in the visualized intestinal tract. Contrast is defined in the bilateral kidney collecting systems and urinary bladder. Fat containing bilateral inguinal hernias are noted. Right and left inguinal soft tissue with fatty hilus is ametabolic. SKELETAL: Degenerative changes are noted in the cervical, thoracic and lumbar spine without evidence of increased radiopharmaceutical concentration. PET/PET/CT Tumor Base -Thigh Subs IMPRESSION: 1. NEGATIVE EXAMINATION. There is no definitive quantitative scintigraphic evidence of recurrent/viable neoplasm. 2. Splenomegaly is demonstrated without evidence of viable neoplasm. (Rose et al., Journal of Nuclear Medicine 44:1072, 2004). 3. There is apparent interval resolution of all prior defined hypermetabolic foci. 4. Homogeneous increased radiopharmaceutical concentration noted in the visualized appendicular and axial skeletal structures is commensurate with the hematopoietic response to chemotherapeutic intervention. (Sugawa et al, Journal of Clinical Oncology 16:173, 1998). 5. Prominent intestinal tract distribution of radiopharmaceutical most accentuated at the level of the rectum-rectal vault is most consistent with physiologic tracer uptake. If intraluminal soft tissue mass formation is a diagnostic consideration, correlation with direct visualization is recommended. (Opal et al, Journal of Nuclear Medicine, 30:S276, 2003). Electronic Signature Xavier Foley D.O. Accurate Quantification of SUVs-standardized [place] scores for this report specific to lymphoma, are calculated using the exclusive [employer], ([place]. Patent No. 10, [id number] 983). Standardization and correction of the FDG SUV metric exclusively available with [employer] intellectual property, allow for vendor non-specific objective quantitative sequential FDG PET-CT comparison and otherwise unobtainable optimization of the sensitivity and specificity of the examination. Electronically Signed: Xavier Foley DO at 17:09 EST Tel , Service support ,
== END ==
PROVIDERS: PCP Family Medicine; Referring Provider Internal Medicine Hematology & Oncology; Visit Provider Internal Medicine Hematology & Oncology
DX: C82.18 Follicular lymphoma grade II, lymph nodes of multiple sites (principal)
CPT/HCPCS: 78815; A9552

== ENCOUNTER → 2022-05-21 | Outpatient (CLI) | payer MEDICARE, SELFPAY ==
[2022-05-21 14:00] LABS: AST(SGOT) 19 U/L (15-37); Alanine Aminotransfer ALT/SGPT 31 U/L (16-61); Albumin, Serum 4.1 g/dL (3.2-5.0); Alkaline Phosphatase 79 U/L (45-117); Anion Gap 7 (5-15); BUN 11 mg/dL (7-18); Bilirubin, Direct 0.23 mg/dL (0.00-0.30); Calcium,Total 9.4 mg/dL (8.5-10.1); Chloride 108 mmol/L (98-107); Creatinine, Serum 0.91 mg/dL (0.70-1.30); EST Glomerular Filtration Rate 90 mL/min (>60); Est Glom Filt Rate - Afr Amer 108 mL/min (>60); Globulin 2.6 g/dL (2.2-4.2); Glucose 88 mg/dL (74-106); LDH 194 U/L (87-241); Magnesium 2.3 mg/dL (1.6-2.6); Potassium 4.2 mmol/L (3.5-5.1); Protein, Total 6.7 g/dL (6.4-8.2); Sodium Level 142 mmol/L (136-145); Uric Acid 6.1 mg/dL (3.5-7.2)
== END | disposition home or self-care (01) ==
LOC: LABSPEC 11:26
PROVIDERS: PCP Family Medicine; Visit Provider Internal Medicine Hematology & Oncology
DX: C82.18 Follicular lymphoma grade II, lymph nodes of multiple sites (principal)
CPT/HCPCS: 80048; 80076; 83615; 83735; 84550